=== PATIENT | male | born 1985 | race Caucasian/White ===

== ENCOUNTER 2023-11-26 09:55 | Outpatient (REF) | payer BC, SELFPAY ==
[2023-11-26 12:34] LABS: HCT 50.1 % (40.0-50.0); HGB 16.3 g/dL (13.5-17.5); MCHC 32.5 % (32.0-36.0); MCV 89 fL (80-95); MPV 9.5 fL (8.0-11.0); Platelet Count 269 10^3/uL (130-400); RBC 5.62 10^6/uL (4.36-5.78); RDW 13.3 % (11.8-14.1); RDW-SD 43.8 fL; WBC 7.72 10^3/uL (4.4-10.8)
[2023-11-26 13:11] LABS: ALT 41 U/L (16-63); AST 20 U/L (15-37); Albumin 4.3 g/dL (3.4-5.0); Alkaline Phosphatase 55 U/L (46-116); Anion Gap 9.8 mmol/L (3-11); BUN 11 mg/dL (7-18); Bilirubin, Total 0.4 mg/dL (0.2-1.0); CO2 27.2 mmol/L (21.0-32.0); CREATININE 0.9 mg/dL (0.70-1.30); Calcium 9.4 mg/dL (8.5-10.1); Chloride 108 mmol/L (98-107); Estimated GFR 111.42 (mL/min/1.73m2); Glucose 101 mg/dL (74-106); Potassium 4.8 mmol/L (3.5-5.1); Sodium 145 mmol/L (136-145); Total Protein 7.9 g/dL (6.4-8.2)
== END 2023-11-26 09:56 | disposition home or self-care (01) ==
LOC: LBN 09:55
PROVIDERS: Visit Provider Nurse Practitioner Family
DX: F41.8 Other specified anxiety disorders (principal)
CPT/HCPCS: 80053; 85027

== ENCOUNTER 2024-01-31 07:41 | Day surgery (SDC) | payer BC, SELFPAY ==
[2024-01-31 07:57] VITALS: BP 117/86; PULSE 79; RESP 16; TEMP 36.2; O2SAT 97
[2024-01-31] MEDS: Lactated Ringers 1,000 ML 80 ML IV (08:13)
--- NOTE | 2024-01-31 08:49 | COLE_ITS ---
Date of service: 01/31/24 Time of Service: 08:51 Colonoscopy Report Procedure Description: PROCEDURES PERFORMED: 1. Colonoscopy PREOPERATIVE DIAGNOSIS: Rectal pain POSTOPERATIVE DIAGNOSIS: Moderate?severe sigmoid diverticulosis, sigmoid fibrosis SURGEON: Beckie Knight MD INDICATION for procedure: The patient is a 38-year-old man with a family history of colon cancer in his grandmother. He has noticed rectal discomfort and pressure for the last 2 or 3 months as well as changes in his bowel habits/stools both in caliber and shape and frequency. FINDINGS: No polyps found. No lesions or inflammation found. In the left colon, starting in the descending colon, there are significant diverticular changes. In the sigmoid colon itself the diverticular disease is moderate to severe and the colon itself is noncompliant and quite fibrotic and tight. No focal stricture and no active inflammation. Presumably this is contributing to the rectal discomfort, bowel habit changes and even some bleeding that he is seeing. No lesions suspicious for cancer or polyps were noted. There is no significant hemorrhoid disease noted. SURVEILLANCE interval/FOLLOW-UP: Repeat colonoscopy in 10 years. Sigmoid resection may need to be considered down the road depending on the severity of his symptoms and whether or not they can get under control/managed with dietary and lifestyle changes. Based off the appearance and the findings, despite no visible inflammation, I suspect some degree of chronic diverticulitis is ongoing. SPECIMENS: None EBL: Minimal COMPLICATIONS: None QUALITY of prep: Excellent Procedure in detail: The patient gave written consent and was in agreement with the indications, the potential risks as well as the benefits of the procedure. They were taken to the endoscopy suite and laid in the left lateral decubitus position. A timeout was performed and anesthesia was administered which was tolerated well. I started the procedure. Digital rectal and visual examination was performed and grossly within normal limits. A well-lubricated flexible colonoscope was then introduced and passed without any notable difficulty all the way to the cecum identified by the ileocecal valve and the appendiceal orifice. The scope was then slowly wi thdrawn with the above-noted findings. The patient tolerated the procedure well and was taken to the PACU in hemodynamically stable condition.
--- NOTE | 2024-01-31 08:52 | W.PM.DSUDISC ---
Date of service: 01/31/24 Time of Service: 08:52 Discharge Plan Disposition Patient Disposition: Home Condition: Good Discharge Details Attending Provider: Leonard Knight Primary Care Provider: Kallie Damian Home Meds and New Rx's Prescriptions: No Action buspirone 5 mg tablet 5 mg PO BID Qty: 60 0RF sertraline 25 mg tablet 25 mg PO DAILY Qty: 90 3RF bisacodyl [Dulcolax (bisacodyl)] 5 mg tablet,delayed release (DR/EC) 5 mg PO ONCE Qty: 4 0RF Rx Instructions: Take per colonoscopy instructions provided by ordering providers office polyethylene glycol 3350 17 gram/dose powder 17 g PO ONCE Qty: 238 0RF Rx Instructions: Take per colonoscopy instructions provided by ordering providers office Discharge Instructions Additional Instructions: FINDINGS: No cancer was found. No no polyps. No inflammation. I think your symptoms are related to pretty advanced diverticulitis disease. This would explain some of the symptoms you have been feeling as well as the bowel habit changes. This is an otherwise benign condition that is extremely common and that usually does not require any intervention. Nonetheless, some people have significant, daily symptoms from their disease and surgical removal of that segment of your colon is an option that can be considered electively at any given point in time. There is no lee to doing this and should be considered if and when the symptoms are affecting your lifestyle such that you feel it needs to be done. You should otherwise repeat another colonoscopy in 10 years Activity:: Activity as Tolerated Diet:: As Tolerated
--- NOTE | 2024-01-31 08:54 | W.ANESPRE ---
General Info Date of Service Date Performed: 01/31/24 Height: 5 ft 9 in Weight: 105.4 kg Body Mass Index (BMI): 34.3 Surgical Procedure: Operation Date: 01/31/24 09:05 Proposed Procedure Side Surgeon p Pola Knight MD Meds Allergies and Home Medications Allergies Allergy/AdvReac Type Severity Reaction Status Date / Time No Known Allergies Allergy Verified 01/31/24 07:51 Home Medication Medication Instructions Recorded buspirone 5 mg tablet 5 mg PO BID #60 tabs 11/26/23 sertraline 25 mg tablet 25 mg PO DAILY #90 tabs 11/27/23 bisacodyl 5 mg tablet,delayed 5 mg PO ONCE #4 tabs 01/17/24 release (Dulcolax (bisacodyl)) polyethylene glycol 3350 17 17 g PO ONCE #238 grams 01/17/24 gram/dose oral powder Current Visit Medications: Current Medications Generic Name Dose Route Start Last Admin Trade Name Freq PRN Reason Stop Dose Admin Ringer's Solution 1,000 mls @ 80 mls/hr 01/31/24 06:00 01/31/24 08:13 IV 01/31/24 23:59 80 mls/hr INFUSION CHEPE Administration IV Miscellaneous Supplies 1 each 01/31/24 06:00 Iv Access IV 01/31/24 23:59 DIRECTED CHEPE Sodium Chloride 0 ml 01/31/24 06:00 Normal Saline Flush 10 Ml Syr IV 01/31/24 23:59 PRN PRN Sodium Chloride 0 ml 01/31/24 06:00 Normal Saline 10 Ml Vial IJ 01/31/24 23:59 DIRECTED PRN Sterile Water 0 ml 01/31/24 06:00 Water,Injection,Sterile 10 Ml Vial IJ 01/31/24 23:59 DIRECTED PRN PFSH Active Problems Active Problems: Problem Status Onset Code Change in bowel habits R19.4 PTSD (post-traumatic stress disorder) F43.10 Anxiety and depression F41.9, F32.A Alcohol abuse F10.10 Medical History Medical History Comments:: Pt. states no triggers for PTSD Tobacco Smoking/Tobacco Use Status: Former Tobacco Use Alcohol Alcohol Intake: former Substance Use Substance use: Daily Substance use type: marijuana Details: Not used any today. Vital Signs and Lab Results Vital Signs Most Recent Vital Signs in EMR: Most Recent Vital Signs Temp Pulse Resp BP Pulse Ox 36.2 C L 79 16 117/86 97 01/31/24 07:57 01/31/24 07:57 01/31/24 07:57 01/31/24 07:57 01/31/24 07:57 Lab Results Blood Type / Crossmatch: No Data to Display Complete Blood Count: No Data to Display Complete Metabolic Panel: No Data to Display Liver Function Panel: No Data to Display Coagulation Panel: No Data to Display Cardiac Panel: No Data to Display Arterial Blood Gas: No Data to Display Venous Blood Gas: No Data to Display Pancreas Panel: No Data to Display Thyroid Panel: No Data to Display Infectious Disease: No Data to Display Blood Cultures: No Data to Display Toxicology Panel: No Data to Display Anesthesia Assessment and Plan Anesthesia History Personal History: No History of Anesthesia Complications Family History: No Family History of Anesthesia Complications Exercise Tolerance Exercise Tolerance: Metabolic Equivalents>4 Pertinent Negatives Pertinent Negatives: No Symptoms of GERD, No Major Cardiovascular Symptoms or Complaints, No Major Pulmonary Symptoms or Complaints and No History of CVA/TIA Cardiac & Pulmonary Exam Cardiac Exam: Normal S1/S2 Heart Sounds Pulmonary Exam: Clear Bilateral Breath Sounds Implantable Cardiac Device Does patient have a Pacemaker or an ICD?: No Airway Exam Known Difficult Airway: No Mallampati Class: 2 Mouth Opening: Normal (> 3cm) Thyromental Distance: Greater than 3 cm Neck Range of Motion: Full ROM Neck Circumference: Normal Teeth Condition: Normal Dentition ASA Classification ASA Score: ASA 2 Emergency Case?: No NPO Status NPO Status: NPO Clears >2 hours, Solids >8 hours Anesthesia Plan Resuscitation Status: Full Code Anesthesia Technique: General Anesthesia Airway Planned: Natural Airway Monitors Used: Standard Monitors Preoperative Comments:: 38 y/o male with history of PTSD, anxiety and depression presents to discuss proceeding with a colonoscopy for further evalution of a change in bowel habits that is associated pain and pressure deep behind his tail bone. Rectal bleeding and family history of colon cancer.
[2024-01-31 08:56] VITALS: BMI 34.3
[2024-01-31 09:29] VITALS: BP 110/79; PULSE 75; RESP 16; TEMP 36.6; O2SAT 95
--- NOTE | 2024-01-31 09:40 | W.ANESPOSTOP ---
Postoperative Evaluation Date, Time and Location Date Performed: 01/31/24 Time Performed: 09:38 Patient Location: Day Surgery Unit Vital Signs Most Recent Imported Vital Signs: Most Recent Vital Signs Temp Pulse Resp BP Pulse Ox 36.6 C 75 16 110/79 95 01/31/24 09:29 01/31/24 09:29 01/31/24 09:29 01/31/24 09:29 01/31/24 09:29 Pain Score Most Recent Pain Score: Most Recent Pain Score Pain Level 0 01/31/24 09:29 Assessment Mental Status: Awake (Alert & Oriented to Patient Baseline) Airway and Respiratory Function: Patent airway with normal (patient baseline) respiratory exam Cardiovascular Function: Hemodynamically Stable Hydration Status: Adequately Hydrated Nausea & Vomiting: No Nausea or Vomiting Pain: Pt. Denies Any Pain Peripheral Nerve Block: Patient did not receive a nerve block
[2024-01-31 09:51] VITALS: BP 109/78; PULSE 58; RESP 14; TEMP 36.6; O2SAT 98
== END 2024-01-31 10:15 | disposition home or self-care (01) ==
PROVIDERS: PCP Nurse Practitioner Family; Visit Provider Student in an Organized Health Care Education/Training Program
PROC: 0DJD8ZZ Inspection of Lower Intestinal Tract, Via Natural or Artificial Opening Endoscopic (ICD-10-PCS; CPT 45378; principal; 2024-01-31 09:00)
DX: Z12.11 Encounter for screening for malignant neoplasm of colon (principal); R19.4 Change in bowel habit; K62.5 Hemorrhage of anus and rectum; K57.30 Diverticulosis of large intestine without perforation or abscess without bleeding; Z80.0 Family history of malignant neoplasm of digestive organs; K64.1 Second degree hemorrhoids
CPT/HCPCS: 45378; 00123; J2704

== ENCOUNTER 2024-05-06 13:51 | Outpatient (CLI) | payer SELFPAY ==
[2024-05-06 13:18] LABS: Hemoglobin A1C 5.3 % (<5.7)
--- OUTSIDE RECORDS SUMMARY | 2024-05-06 13:53 | XMS_ITS ---
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 ADM. Social History Type Status Start Date End Date Code Code Syst em Sex Male Vital Signs Vital Sign Value Unit Asotin Value Asotin Unit Date/Time Recent/Initial? Code Code System Body Mass Index 33.00 kg/m2 11/08/2023 18:38 Initial 07313 -5 LOINC Systolic Blood Pressure 130 mm[Hg] 11/08/2023 20:51 Most Recent 8480- 6 LOINC Diastolic Blood Pressure 87 mm[Hg] 11/08/2023 20:51 Most Recent 8462- 4 LOINC Systolic Blood Pressure 134 mm[Hg] 11/08/2023 18:38 Initial 8480- 6 LOINC Diastolic Blood Pressure 99 mm[Hg] 11/08/2023 18:38 Initial 8462- 4 LOINC Body Surface Area 2.27 m2 11/08/2023 18:38 Initial 3140- 1 LOINC Height 177.800 0 cm 70.00 in 11/08/2023 18:38 Initial 8302- 2 LOINC O2 Saturation 100 % 2023 20:51 Most Recent 33540 -5 LOINC O2 Saturation 97 % 2023 18:38 Initial 51937 -5 LOINC Pulse 79.0 /min 11/08/2023 20:51 Most Recent 8867- 4 LOINC Pulse 77.0 /min 11/08/2023 18:38 Initial 8867- 4 LOINC Respiration 15 /min 11/08/19 20:51 Most Recent 9279- 1 LOINC Respiration 18 /min 11/08/19 18:38 Initial 9279- 1 LOINC Temperature 36.3 [place] 97.3 F 11/08/19 18:38 Initial 8310- 5 LOINC Weight 104.33 kg 230.00 lbs 11/08/2023 18:38 Initial 39964 -7 [facility] Hospital Discharge Instructions Should you have any questions prior to discharge, please contact a member of your healthcare team. If you have left the hospital and have any questions, please contact your primary care physician. Reason For Referral No Data Found Allergies and Adverse Reactions Allergy Substance Reaction Severity Start Date Concern Status Co de Code System No Known Allergies Active [id number] SNO MED-CT Plan of Treatment No Data Found Encounters Encounter Diagnosis Start Date Code Code Sys tem Unspecified asthma with (acute) exacerbation 4 SNOMED-CT Personal Care Team Section Performer Name Performer Role Active Date Inactive Da tripp
[2024-05-06 14:10] LABS: ALT 32 U/L (16-63); AST 18 U/L (15-37); Albumin 3.8 g/dL (3.4-5.0); Alkaline Phosphatase 52 U/L (46-116); Anion Gap 6.7 mmol/L (3-11); BUN 11 mg/dL (7-18); CO2 33.3 mmol/L (21.0-32.0); Calcium 9.1 mg/dL (8.5-10.1); Calculated LDL 100 mg/dL (<100); Chloride 103 mmol/L (98-107); Cholesterol 180 mg/dL (<200); Estimated GFR 98.18 (mL/min/1.73m2); Glucose 104 mg/dL (74-106); HDL Cholesterol 54 mg/dL (40-60); Potassium 4.6 mmol/L (3.5-5.1); Sodium 143 mmol/L (136-145); TSH (W/Ref FT4) 3.74 uIU/mL (0.36-3.74); Total Protein 7.6 g/dL (6.4-8.2); Triglyceride 131 mg/dL (<150)
== END 2024-05-06 13:52 | disposition home or self-care (01) ==
LOC: LBO 13:52
PROVIDERS: PCP Nurse Practitioner Family; Visit Provider Nurse Practitioner Family
DX: F41.9 Anxiety disorder, unspecified (principal); F32.A Depression, unspecified; F10.10 Alcohol abuse, uncomplicated; J45.990 Exercise induced bronchospasm; R19.4 Change in bowel habit; R53.83 Other fatigue
CPT/HCPCS: 36415; 80053; 80061; 83036; 84443